=== PATIENT | male | born 1985 | race Caucasian/White ===

== ENCOUNTER 2022-09-07 05:36 | Outpatient (CLI) | payer BC ==
[~2022-09-07] VITALS: Ht 188 cm; Wt 106.0 kg
[2022-09-07] MEDS ORDERED: LACTATED RINGERS 1,000 ML IV STA (16:15)
[2022-09-07] MEDS ORDERED: TRIA15CR TP (16:20)
[2022-09-07] MEDS ORDERED: LORA10TA7 PO (16:20)
== END 2022-09-07 16:38 ==
LOC: PREOP 05:36
PROVIDERS: ATTEND Surgery
DX: Z01.818 Encounter for other preprocedural examination (principal)

== ENCOUNTER 2022-09-15 12:23 | Day surgery (SDC) | payer BC ==
[2022-09-15] VITALS (9 sets, daily range): BP systolic 108–119; BP diastolic 64–79
[~2022-09-15] VITALS: Ht 188 cm; Wt 106.0 kg
[~2022-09-15 12:23] MED LIST: LORA10TA7 PO; TRIA15CR TP
[2022-09-15] MEDS ORDERED: LACTATED RINGERS 1,000 ML IV STA (12:39)
[2022-09-15] MEDS ORDERED: MIDAZOLAM 2 MG/2 ML (VERSED) VIAL ONE (13:01)
[2022-09-15] MEDS ORDERED: PROPOFOL INJECTION 50 ML IV ONE ×2 (13:01→13:36)
--- NOTE | 2022-09-15 13:15 | Progress Note-Pre Operative ---
Pre-Operative Progress Note Date H&P Reviewed: Sep 15, 2022 Time H&P Reviewed: 13:14 History & Physical: H&P Reviewed, Patient Examed, No changes noted Pre-Operative Diagnosis: change in bowel habits hematochezia KAPIL VIVAS DO Sep 15, 2022 13:15
--- NOTE | 2022-09-15 13:48 | Progress Note-Post Operative ---
Post-Operative Progess Note Surgeon (s)/Vessel Scrapper Helper (s) Surgeon KAPIL VIVAS DO Vessel Scrapper Helper: na Pre-Operative Diagnosis change in bowel habits hematochezia Post-Operative Diagnosis anal iritation Procedure & Operative Findings Date of Procedure 09/15/22 Procedure Performed/Findings colonoscopy Anesthesia Type per board handler Estimated Blood Loss Estimated blood loss (mL): na Specimens/Packing Specimens Removed none KAPIL VIVAS DO Sep 15, 2022 13:48
--- NOTE | 2022-09-15 13:54 | Anesthesia-General Post-Op ---
MAC Patient Condition Mental Status/LOC: Same as Preop Cardiovascular: Satisfactory Nausea/Vomiting: Absent Respiratory: Satisfactory Pain: Controlled Complications: Absent Post Op Complications Complications None Follow Up Care/Instructions Patient Instructions None needed. Anesthesiology Discharge Order Discharge Order Patient is doing well, no complaints, stable vital signs, no apparent adverse anesthesia problems. No complications reported per nursing. TE DE OLIVEIRA CRNA Sep 15, 2022 13:54
--- NOTE | 2022-09-15 13:54 | Discharge Inst-Simple/Standard ---
Discharge Inst-Standard Patient Instructions/Follow Up Plan of Care/Instructions/FU: Cody 2 weeks. Keep stools soft use stool softener if needed. Activity as Tolerated: Yes Discharge Diet: Regular Diet KAPIL VIVAS DO Sep 15, 2022 13:54
--- NOTE | 2022-09-15 21:56 | OPERATIVE REPORT ---
DATE OF SERVICE: 09/15/2022 PREOPERATIVE DIAGNOSES: Change in bowel habits, hematochezia. POSTOPERATIVE DIAGNOSES: Anal irritation, normal colon. PROCEDURE: Colonoscopy. SURGEON: Kapil Ross DO ANESTHESIA: Per CAR WIPER. ESTIMATED BLOOD LOSS: None. COMPLICATIONS: None. INDICATIONS: The patient is a 37-year-old male with hematochezia and change in bowel habits. He understands risks and benefits of procedure and wished to proceed. Consent was signed in chart. DESCRIPTION OF PROCEDURE: The patient was taken to endoscopy suite, placed in left lateral recumbent position. Timeout was performed. Digital rectal exam performed. No palpable polyps, masses or ulcerations. There is some slight anal irritation. Scope was inserted in the rectum, advanced all the way to the cecum with minimal difficulty. Prep was adequate. The ileocecal valve was intubated, normal appearance of the ileum. Scope was retracted back. No polyps, masses or ulcerations in the cecum, ascending, transverse, descending and sigmoid colon. Once in the rectum, scope was retroflexed noting no other pathology. Scope was returned to its normal position, slowly withdrawn until completely removed just noting some slight anal irritation. No active bleeding. The patient tolerated the procedure well, no complications, taken to recovery room in stable condition. RECOMMENDATIONS: The patient will follow up in approximately 2 weeks if he has continued to have issues, would be on stool softener keeping his stool soft. We will reevaluate and if still having issues, would consider hydrocortisone cream. If continues, would consider biopsy. Job ID: [id number] DocumentID: [id number] Dictated Date: 09/15/2022 13:58:49 Emergency Physician Date: 09/15/2022 21:54:00 Dictated By: KAPIL ROSS DO
== END 2022-09-15 14:45 | disposition home or self-care (01) ==
LOC: ENDO 12:23
PROVIDERS: ATTEND Surgery
DX: K62.89 Other specified diseases of anus and rectum (principal); K92.1 Melena; R19.4 Change in bowel habit

== ENCOUNTER 2022-10-05 07:00 | Outpatient (RCR) | payer BC | END 2022-10-14 | disposition still patient (30) | LOC: LAB 07:00 | PROVIDERS: ATTEND Surgery | DX: R19.7 Diarrhea, unspecified (principal) | CPT/HCPCS: 87015; 87045; 87046; 87328; 87329; 87449; 87899 ==